=== PATIENT | male | born 1950 | race Caucasian/White ===

== ENCOUNTER 2018-03-30 06:47 | Day surgery (SDC) | payer OTHER ==
[~2018-03-30] VITALS: Ht 172.7 cm; Wt 83.9 kg
[2018-03-30] VITALS (7 sets, daily range): BP systolic 74–124; BP diastolic 30–71
[~2018-03-30 06:47] MED LIST: SODIUM CHLORIDE 0.9% 1000ML 1,000 ML IV ONE
[2018-03-30] MEDS ORDERED: ASPI-555 PO (08:40)
[2018-03-30] MEDS ORDERED: SIMV20TA6 PO (08:40)
[2018-03-30] MEDS ORDERED: LISI10TA7 PO (08:40)
[2018-03-30] MEDS ORDERED: CARV25TA PO (08:40)
[2018-03-30] MEDS ORDERED: PROPOFOL 10 MG/ML 20ML VIAL IV ONE ×2 (10:17)
[2018-03-30] MEDS ORDERED: PHENYLEPHRINE HCL 10 MG/ML 1ML VIAL IV ONE (10:26)
[2018-03-30] MEDS ORDERED: SODIUM CHLORIDE 0.9% 10 ML VIAL ONE (10:26)
== END 2018-03-30 11:10 | disposition home or self-care (01) ==
LOC: ENDO 06:47 → DAH 06:48 → ENDO 11:10
PROVIDERS: ATTEND Internal Medicine Gastroenterology
DX: Z12.11 Encounter for screening for malignant neoplasm of colon (principal); D12.3 Benign neoplasm of transverse colon; K57.30 Diverticulosis of large intestine without perforation or abscess without bleeding; Z86.010 Personal history of colon polyps; I10 Essential (primary) hypertension; E78.5 Hyperlipidemia, unspecified; M19.90 Unspecified osteoarthritis, unspecified site; I25.10 Atherosclerotic heart disease of native coronary artery without angina pectoris; Z90.49 Acquired absence of other specified parts of digestive tract; Z95.5 Presence of coronary angioplasty implant and graft; Z79.899 Other long term (current) drug therapy
CPT/HCPCS: 45385; 88305; 93005; A4606; J2370; J2704; J7030; 45380

== ENCOUNTER → 2021-01-23 | Outpatient (CLI) | payer OTHER ==
[~2021-01-23] MED LIST changes: +ASPI-556 PO; +CARV25TA PO; +LISI10TA24 PO; +SIMV-43 PO; -SODIUM CHLORIDE 0.9% 1000ML 1,000 ML IV ONE
== END | disposition home or self-care (01) ==
LOC: SHCH 07:47
PROVIDERS: ATTEND Internal Medicine Cardiovascular Disease
DX: I25.10 Atherosclerotic heart disease of native coronary artery without angina pectoris (principal)
CPT/HCPCS: 93306; 93356